=== PATIENT | female | born 1990 | race Two or more races ===

== ENCOUNTER 2017-07-06 03:50 | Emergency (ER) | payer MEDICAID, OTHER ==
[~2017-07-06] VITALS: Ht 157.5 cm; Wt 54.0 kg
[2017-07-06 05:32] VITALS: BP 102/82
[2017-07-06] MEDS ORDERED: SODIUM CHLORIDE 0.9% 1,000 ML IV ONE (07:17)
[2017-07-06] MEDS ORDERED: KETOROLAC TROMETH 30 MG/ML 1ML VIAL IV ONE (07:30)
[2017-07-06] MEDS ORDERED: METOCLOPRAMIDE HCL 5MG/ml INJ 2ml VIAL IV ONE (07:30)
== END 2017-07-06 08:35 | disposition left against medical advice (07) ==
LOC: EDBD 03:50 → ER 03:56
DX: S33.5XXA Sprain of ligaments of lumbar spine, initial encounter (principal); G89.29 Other chronic pain; M54.5 Low back pain; X58.XXXA Exposure to other specified factors, initial encounter; Y93.89 Activity, other specified; Y92.89 Other specified places as the place of occurrence of the external cause; Y99.8 Other external cause status

== ENCOUNTER 2017-07-07 11:52 | Emergency (ER) | payer MEDICAID ==
[~2017-07-07] VITALS: Ht 157.5 cm; Wt 54.4 kg
[2017-07-07] MEDS ORDERED: KETOROLAC TROMETH 60MG/2ML VIAL IM ONE (13:45)
[2017-07-07 13:51] VITALS: BP 118/66
== END 2017-07-07 14:13 | disposition home or self-care (01) ==
LOC: ER 11:52 → EDBD 11:52 → ER 14:13
DX: G89.29 Other chronic pain (principal); M54.5 Low back pain
CPT/HCPCS: 96372; 99283; J1885